=== PATIENT | female | born 1945 | race Caucasian/White ===

== ENCOUNTER 2018-07-05 16:07 | Observation (INO) | payer MEDICARE, BC ==
--- NOTE | 2018-07-05 16:44 | RAD ---
PA AND LATERAL OF THE CHEST: 07/05/18 INDICATION: History of dyspnea and shortness of breath. FINDINGS: There is mild cardiomegaly. There is stable chronic interstitial coarseness which appears similar to the prior exam suspicious for changes of underlying fibrosis. No consolidation, pleural effusion, or pneumothorax is evident. IMPRESSION: No definite acute abnormality. The examination is not appreciably changed from the comparison study. There is diffuse interstitial markings that are slightly prominent and appears similar to the prior e xam suspicious for underlying fibrosis. POS: [facility]
[2018-07-05 16:48] LABS: #Basophils 0.1 thou/uL (0.0-0.2); #Eosinphils 0.3 thou/uL (0.0-0.7); #Lymphocytes 2.8 thou/uL (1.20-3.40); #Monocytes 0.6 thou/uL (0.11-0.59); #Neutrophils 4.1 thou/uL (1.40-6.50); %Basophils 1.8 % (0.0-1.0); %Eosinophils 3.3 % (0.0-10.0); %Lymphocytes 35.7 % (21.0-51.0); %Monocytes 7.4 % (0.0-10.0); %Neutrophils 51.8 % (42.0-75.0); Hemoglobin 13.4 g/dL (12.0-16.0); Mean Corpuscular HGB CONC 35.8 g/dL (32.0-36.0); Mean Corpuscular Hemoglobin 31.2 pg (27.0-31.0); Mean Corpuscular Volume 87.2 fL (78.0-98.0); Mean Platelet Volume 5.7 fL (7.4-10.4); Platelet Count 291 thou/uL (130-400); RBC Distribution Width 11.5 % (11.5-14.5); White Blood Cell (WBC) Count 7.8 thou/uL (4.8-10.8)
[2018-07-05 16:59] LABS: ALT (SGPT) 13 U/L (8-55); AST (SGOT) 19 U/L (5-34); Albumin 3.8 g/dL (3.4-4.8); Alkaline Phosphatase 65 U/L (40-150); Anion Gap 13 mmol/L (10-20); BUN (Urea Nitrogen) 8 mg/dL (9.8-20.1); Bilirubin, Total 0.4 mg/dL (0.2-1.2); CK (CPK) 67 U/L (29-168); Calc. Creatinine Clearance 0 mL/min (70-130); Calcium 9.5 mg/dL (7.8-10.44); Carbon Dioxide 24 mmol/L (23-31); Chloride 102 mmol/L (98-107); Estimated GFR-MDRD 79; Globulin 2.5 g/dL (2.4-3.5); Glucose 90 mg/dL (80-115); Potassium 3.9 mmol/L (3.5-5.1); Protein, Total 6.3 g/dL (6.0-8.3); Sodium 135 mmol/L (136-145)
[2018-07-05 17:01] LABS: CKMB 0.7 ng/mL (0-6.6); Troponin I Less than 0.010 ng/mL (< 0.028)
[2018-07-05 19:52] LABS: Troponin I Less than 0.010 ng/mL (< 0.028)
[2018-07-05 21:13] VITALS: BMI 25.2
[2018-07-05] MEDS ORDERED: Ondansetron ODT 4 MG TAB PO PRN (22:22)
[2018-07-05] MEDS ORDERED: Acetaminophen 325 MG TAB PO PRN (22:22)
[2018-07-05] MEDS ORDERED: Acetaminophen 500 MG TAB PO PRN (22:33)
[2018-07-05] MEDS ORDERED: ESZOPICLONE 3 MG PO SCH (23:00)
[2018-07-05 23:29] LABS: Troponin I Less than 0.010 ng/mL (< 0.028)
[2018-07-06 04:59] LABS: Anion Gap 14 mmol/L (10-20); BUN (Urea Nitrogen) 7 mg/dL (9.8-20.1); Calc. Creatinine Clearance 73 mL/min (70-130); Calcium 8.9 mg/dL (7.8-10.44); Carbon Dioxide 20 mmol/L (23-31); Chloride 105 mmol/L (98-107); Estimated GFR-MDRD 84; Glucose 83 mg/dL (80-115); Potassium 3.7 mmol/L (3.5-5.1); Sodium 135 mmol/L (136-145)
--- NOTE | 2018-07-06 06:16 | HP ---
PRIMARY CARE PHYSICIAN: Emiliano Brady MD CODE STATUS: FULL CODE. TIME OF EVALUATION: 10:20 p.m. CHIEF COMPLAINT: Worsening shortness of breath. HISTORY OF PRESENT ILLNESS: This is a [id number] female patient with past medical history positive for high cholesterol. The patient has no other significant medical problems. She came to the [facility] after having gradually worsening shortness of breath. The symptoms have been present for the pas t few weeks and has been getting worse over the past few days. No clear triggers. No alleviating fa ctors. The patient reported that it gets worse with exertion, improved with resting. She also repor hamilton having some sinus infection, runny nose, and upper respiratory infection. The symptoms were repo rted as [id number]. REVIEW OF SYSTEMS: Constitutional: No fever, chills, or generalized weakness. Respiratory: The pa sridevi has cough. No sputum production. Shortness of breath. Cardiovascular: No chest pain or palp itation. Reported shortness of breath. Gastrointestinal: No nausea, vomiting, diarrhea, abdominal pain. 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 Genitourinary: No burning with urinati on. Extremities: No leg swelling. All other systems were reviewed and negative except for the find ings mentioned above. PAST MEDICAL HISTORY: As mentioned in the HPI. PAST SURGICAL HISTORY: History of heart catheterization. PAST SURGICAL HISTORY: Hysterectomy, sinus surgery. SOCIAL HISTORY: No alcohol, no drugs, no smoking history. FAMILY HISTORY: Mother had history of cancer. Father has a history of acute CT. ALLERGIES: SULFA. REPORTED MEDICATIONS: Aspirin, Lunesta, Lipitor. PHYSICAL EXAMINATION: VITAL SIGNS: Blood pressure 120/71 with heart rate 68, respiratory rate was 24, temperature 97.7, pa in 8/10, oxygen saturation 98 on room air. GENERAL APPEARANCE: The patient is alert, oriented, not in acute distress. HEENT: Eyes, normal conjunctivae. Moist oral mucosa. Anicteric. NECK: No JVD. RESPIRATORY: The patient has bilateral decreased air entry with bilateral rales in lower bases. No wheezing. Symmetric expansion. CARDIOVASCULAR: Normal rate, regular rhythm. No murmurs, no gallop, no edema. ABDOMEN: Soft. Normal bowel sounds. MUSCULOSKELETAL: Baseline range of motion and strength. No tenderness. SKIN: Warm and intact. No pallor, no rash, no redness. Peripheral pulses are present. Capillary r efill seems to be intact. NEUROLOGIC: Baseline sensorium. No evidence of any new focal weakness. Baseline speech. Cranial n erve seems to be intact. PSYCHIATRIC: The patient is in good mood. No anxiety. Oriented. Optimal judgement. EKG was discussed with the performing physician. Normal sinus rhythm at a rate of 64 with no evidenc e of any acute ischemic event. Chest x-ray was reviewed and was reported negative. LABORATORY DATA: The patient has white count 7.8, hemoglobin 13.4, MCV 87.2, platelet count 291. So dium 135, potassium 3.9, chloride 102, carbon dioxide 24, anion gap 13, BUN 8, creatinine 0.73, GFR 7 9, glucose 90, calcium 9.5, total bilirubin 0.4. LFTs were negative. Troponins were negative. ASSESSMENT AND PLAN: The patient will be placed in the hospital with following medical problems: 1. Progressive shortness of breath, unclear etiology. The patient has bilateral lower lobe crackles and possible . The patient also has a history of having some blockage in the past or coronary artery disease. Troponins are negative. BNP is negative. We will rule out congestive heart failure with echo in the morning. If there is no congestive heart failure, the next possibility for diagnos is could be pulmonary fibrosis. In this case, I could do high-resolution CT of the chest and we will consult Pulmonary for further management. The patient is with normal vital signs at this point. We will put some nebulizers. She does not seem to have any need for any further medication at this poi nt. The patient has been started empirically in the morning if echo is negative for congestive heart failure. 2. Hyperlipidemia. Continue atorvastatin. Low-cholesterol diet is advised. 3. Deep venous thrombosis prophylaxis.
[2018-07-06 07:31] LABS: #Basophils 0.1 thou/uL (0.0-0.2); #Eosinphils 0.3 thou/uL (0.0-0.7); #Lymphocytes 2.5 thou/uL (1.20-3.40); #Monocytes 0.5 thou/uL (0.11-0.59); #Neutrophils 3.9 thou/uL (1.40-6.50); %Basophils 0.7 % (0.0-1.0); %Eosinophils 4.4 % (0.0-10.0); %Lymphocytes 34.1 % (21.0-51.0); %Monocytes 7.4 % (0.0-10.0); %Neutrophils 53.3 % (42.0-75.0); Hemoglobin 13.1 g/dL (12.0-16.0); Mean Platelet Volume 6.4 fL (7.4-10.4); Platelet Count 265 thou/uL (130-400); RBC Distribution Width 12.6 % (11.5-14.5); Red Blood Cell (RBC) Count 3.98 mill/uL (4.20-5.40); White Blood Cell (WBC) Count 7.3 thou/uL (4.8-10.8)
[2018-07-06] MEDS ORDERED: Furosemide 40 MG/4 ML VIAL SLOW IVP SCH (09:00)
[2018-07-06] MEDS ORDERED: Aspirin 325 mg Enteric Coated Tablet PO SCH (09:00)
[2018-07-06] MEDS ORDERED: Enoxaparin Sodium 40 MG/0.4 ML SYRINGE SC SCH (09:00)
[2018-07-06] MEDS ORDERED: Aspirin 81 mg Enteric Coated Tablet PO SCH (09:00)
[2018-07-06] MEDS ORDERED: Atorvastatin Calcium 20 MG TAB PO SCH ×2 (09:00→21:00)
--- NOTE | 2018-07-06 12:01 | PDOC.PN ---
- Subjective Encounter Start Date: 07/06/18 (f/u Shortness of breath) Encounter Start Time: 12:00 Subjective: Pt reports waking up feeling better today. Denies any new sx. -: Voided x 3 after lasix this morning. - Objective Resuscitation Status: Resuscitation Status FULL:Full Resuscitation Vital Signs & Weight: Vital Signs (12 hours) Temp Pulse Resp BP BP Pulse Ox 07/06/18 08:05 98.3 F 69 16 116/57 L 92 L 07/06/18 03:48 98.4 F 71 24 H 125/63 93 L 07/06/18 00:14 98.1 F 68 25 H 120/56 L 93 L Weight Weight 133 lb 11.2 oz I&O: 07/05/18 07/06/18 07/07/18 06:59 06:59 06:59 Intake Total 240 4 Balance 240 4 Result Diagrams: 07/06/18 04:02 07/06/18 04:02 EKG Reviewed by me: Yes (tele - sinus 50-60's) Phys Exam - Physical Examination Constitutional: NAD Respiratory: no wheezing, no rhonchi fine rales right base > left base. Cardiovascular: RRR, no significant murmur Gastrointestinal: soft, non-tender, no distention, positive bowel sounds Musculoskeletal: no edema, pulses present Neurological: non-focal, moves all 4 limbs Psychiatric: normal affect Dx/Plan (1) Dyspnea Code(s): R06.00 - DYSPNEA, UNSPECIFIED Status: Acute (2) Dyslipidemia Code(s): E78.5 - HYPERLIPIDEMIA, UNSPECIFIED Status: Chronic - Plan * suspect interstitial lung disease - will order high resolution CT scan of chest. Based on this result, may need inpatient or outpatient consult to Pulm. * Obtain pulse ox with ambulation * Negative cardiac eval thus far - normal BNP, neg trops, normal telemetry. Echo result pending, will d/c lasix * continue home meds * Recent sinus infection post-abx with peristent PND and some sx - otc meds. * * dvt prophy - ambulatory * gi prophy - not indicated * code status full * * Reviewed plan of care with patient, no questions or further needs at end of eval.
[2018-07-06 16:07] VITALS: BP 158/66; TEMP 98
--- NOTE | 2018-07-06 16:53 | CT ---
NONCONTRAST HIGH RESOLUTION CT IMAGES OF THE THORAX 07/06/18 COMPARISON: CT pulmonary lung scan dated 09/08/16. FINDINGS: There is moderate to severe central lobular and paraseptal emphysema. There is some subsegmental volu me loss within both lower lobes that improves with supine positioning. No keren pulmonary effusion is evident. There is scattered coronary artery and thoracic aortic calcifications. IMPRESSION: 1. Moderate to severe central lobular and paraseptal emphysema appears similar to the prior exam . 2. Transient subsegmental volume loss within both lower lobes. POS: [facility]
[2018-07-06] MEDS ORDERED: ESZOPICLONE 3 MG PO SCH (21:00)
--- NOTE | 2018-07-06 23:09 | DIS ---
DATE OF ADMISSION: 07/05/2018 DATE OF DISCHARGE: 07/06/2018 DISCHARGE DIAGNOSES: 1. Jsefygax-ha-uvcdry emphysema, new diagnosis. SECONDARY DIAGNOSES: 1. Dyslipidemia. 2. Insomnia. 3. Tobacco abuse. MEDICATIONS: Reconciled at discharge. NEW MEDICATIONS: 1. Spiriva Respimat 2 inhalations once daily, dispense 1, refill 1. 2. Albuterol or Ventolin HFA 1 puff every 4 hours as needed for wheezing or shortness of breath. CONTINUED MEDICATIONS: 1. Tylenol 500 mg every 4 hours as needed. 2. Aspirin 81 mg daily. 3. Atorvastatin 20 mg daily. 4. Lunesta 3 mg at bedtime. STUDIES PENDING: Echocardiogram result - to be obtained either from Dr. Brady or Dr. Oneill. HISTORY OF PRESENT ILLNESS: Ms. Marie is a 72-year-old female who presented to the emergency room with gradually worsening shortness of breath ongoing for the past few weeks. Symptoms were worse with exertion and improved with resting , and she has recently been treated for a sinus infection with antibiotics. Patient was admitted for further evaluation. HOSPITAL COURSE: Patient was evaluated, given a dose of Lasix for concern of a cardiac etiology, and echocardiogram was obtained but not yet read at time of discharge. She had an abnormal chest x-ray concerning for areas suspicious for fibrosis and underwent a high-resolution CT today, which showed moderate-to- severe emphysematous changes. In conjunction with her symptoms, history of tobacco abuse, this is all consistent with a new diagnosis of emphysema. Patient has seen Dr. Oneill in the remote past and will follow up with him in the outpatient setting. In the meantime, we will start her on Spiriva daily, as well as needed albuterol. She has maintained a normal oxygen saturation level at rest and with ambulation. Patient is overall feeling better today, there are no acute needs, and she meets criteria for discharge to home. PHYSICAL EXAMINATION: On day of discharge, please see note on chart. STILES FINDINGS AND TEST RESULTS: 1. CBC: 7.3, 13.1, 38.6, 265. 2. D-dimer 0.34/negative. 3. Renal panel: 135, 3.7, 105, 20, 7, 0.69, 83. 4. Troponins x3 negative, BNP 11. LFTs were normal. High-resolution CT performed today, [id number] central lobular and paraseptal emphysema appears similar to the prior exam, transient subsegmental volume loss within both lower lobes. Chest x-ray performed yesterday, no definite acute abnormality, not appreciably changed from comparison study, diffuse interstitial markings are slightly prominent appears similar to prior exam suspicious for underlying fibrosis. DIET: Heart healthy. ACTIVITY: As tolerated. FOLLOWUP: 1. Follow up with Dr. Oneill in the next available appointment for further evaluation, and management of new diagnosis of emphysema. 2. Follow up with Dr. Brady within a week or two to obtain the echocardiogram report, and address any other health needs. DISCHARGE DISPOSITION: Home. CODE STATUS: FULL. I reviewed with patient and her family this hospitalization, the findings of the CT result, encouragement for tobacco cessation, and return for care precautions. They demonstrate understanding. Total time coordinating discharge is 30 minutes. HARDEEP
== END 2018-07-06 18:32 | disposition home or self-care (01) ==
LOC: SCSER 16:07 → 2SW 17:52
PROVIDERS: ADMIT Internal Medicine; ATTEND Internal Medicine
DX: J43.9 Emphysema, unspecified (principal); E78.5 Hyperlipidemia, unspecified; G47.00 Insomnia, unspecified; Z88.2 Allergy status to sulfonamides; Z79.82 Long term (current) use of aspirin; Z79.899 Other long term (current) drug therapy
CPT/HCPCS: 71046; 71250; 80048; 80053; 82550; 82553; 83880; 84484 ×2; 85025 ×2; 85379; 93005; 93306; 96372; 96374; 99285; G0378 ×2; 36415; J1650; J1940; J7620; Q0162

== ENCOUNTER 2018-12-09 08:42 | Outpatient (CLI) | payer MEDICARE, BC ==
--- NOTE | 2018-12-09 11:23 | MRI ---
LUMBAR SPINE MRI WITHOUT CONTRAST: DATE: 12/09/2018. COMPARISON: 08/05/2017. HISTORY: Lumbar radiculopathy, bilateral hip pain with bilateral lower extremity radiculopathy, right worse th an left. TECHNIQUE: Multiplanar, multisequence MR imaging of the lumbar spine provided without contrast. FINDINGS: The sagittal STIR imaging demonstrates no discrete focal area of osseous marrow edema. There is moderate levoscoliosis within the mid lumbar spine. On the basis of 5 lumbar-type vertebral bodies, conus medullaris terminates at the L1 level. T12-L1: There is disk desiccation. There is no significant central canal or neural foraminal stenos is. L1-2: There is disk space narrowing and disk desiccation. There is bilateral facet hypertrophy. Th ere is disk bulge. These findings are, for the most part, new when compared to the prior exam. Ther e is mild central canal stenosis and mild bilateral neural foraminal stenosis. L2-3: There is disk space narrowing and disk desiccation with a disk-osteophyte complex and anterior osteophyte formation. There is mild central canal stenosis. These findings are new when compared t o the prior imaging. There is mild bilateral facet hypertrophy with mild bilateral neural foraminal stenosis. L3-4: Disk space narrowing, disk desiccation, and disk bulge present with moderate central canal maria luisa nosis, worsened when compared to prior imaging. There is facet hypertrophy bilaterally with mild/mod erate bilateral neural foraminal stenosis, left greater than right. L4-5: Disk space narrowing, disk desiccation, and disk-osteophyte complex present. Mild central can al stenosis, stable. There is mild bilateral neural foraminal stenosis, left greater than right. L5-S1: There is disk space narrowing, disk desiccation, and mild disk bulge. No significant central canal stenosis. Bilateral facet hypertrophy present. Moderate left-sided neural foraminal stenosis , slightly worsened. Review of the retroperitoneal structures demonstrates no acute findings. IMPRESSION: Multilevel degenerative change within the lumbar spine, worsened since the 2006 exam. POS: [facility]
--- NOTE | 2018-12-09 11:30 | RAD ---
LUMBAR SPINE 4 VIEWS: DATE: 12/09/2018. COMPARISON: None. HISTORY: Lumbar radiculopathy. FINDINGS: Frontal imaging demonstrates significant levoscoliosis of the lumbar spine centered at the L2 level. There is atherosclerotic calcification of the abdominal aorta. There is multilevel disk space narrowing within the lumbar spine, most prominent at L1-2, L2-3, and L 3-4. The lateral imaging demonstrates multilevel disk space narrowing with multilevel degenerative e nd plate change as well as multilevel anterior osteophyte formation at all levels. There is no anter olisthesis or retrolisthesis seen on the neutral lateral, flexion lateral, or extension lateral views . Posterior osteophyte formation noted at T12-L1, L1-2, and L3-4. IMPRESSION: Multilevel degenerative change within the lumbar spine as detailed above. POS: [facility]
== END 2018-12-09 08:43 | disposition home or self-care (01) ==
LOC: BICMRI 08:42
PROVIDERS: ATTEND Anesthesiology Pain Medicine
DX: M47.26 Other spondylosis with radiculopathy, lumbar region (principal)
CPT/HCPCS: 72110; 72148

== ENCOUNTER 2019-11-19 09:33 | Outpatient (CLI) | payer MEDICARE, BC ==
--- NOTE | 2019-11-19 10:33 | CT ---
EXAM: CT chest without contrast per low-dose cancer screening protocol HISTORY: History of smoking and nicotine dependence COMPARISON: 09/08/2016 TECHNIQUE: Multiple contiguous axial images were obtained in a CT of the chest without contrast per l ow-dose cancer screening protocol. Sagittal and coronal reformats were performed. FINDINGS: Pulmonary nodules: A stable 5 mm triangle shaped nodule is seen in the superior aspect of the left lo wer lobe on image 135 of 250. No new pulmonary nodules are seen. No focal infiltrates are seen. Atelectasis is seen in both lung bases. Pleural space: No pneumothorax or pleural effusion are seen. Heart: The heart is normal in size. Mediastinum: No hilar or mediastinal lymphadenopathy appreciated on this limited noncontrast examinat ion. Bones: Unremarkable. Visualized subdiaphragmatic structures: Unremarkable. IMPRESSION: Lung RADS category 2-benign findings.
== END 2019-11-19 09:34 | disposition home or self-care (01) ==
LOC: CT 09:33
PROVIDERS: ATTEND Family Medicine
DX: Z12.2 Encounter for screening for malignant neoplasm of respiratory organs (principal); F17.210 Nicotine dependence, cigarettes, uncomplicated
CPT/HCPCS: G0297

== ENCOUNTER 2019-11-24 09:08 | Outpatient (CLI) | payer MEDICARE, BC ==
--- NOTE | 2019-11-24 10:04 | MMO ---
Bilateral MAMMO Bilat Screen [facility]. CLINICAL HISTORY: Patient is 74 years old and is seen for screening. The patient has no family history of breast cancer. The patient has no personal history of cancer. VIEWS: The views performed were: bilateral craniocaudal with tomosynthesis and bilateral mediolateral oblique with tomosynthesis. FILMS COMPARED: The present examination has been compared to prior imaging studies performed at [facility] on 06/12/2014, 10/06/2015 and 10/09/2016, and at [facility] on 11/28/2007. This study has been interpreted with the assistance of computer-aided detection. MAMMOGRAM FINDINGS: There are scattered fibroglandular densities. There is an asymmetry seen in the CC view only seen in the sub-areolar region of the left breast. In the right breast, there are no suspicious masses, calcifications or areas of architectural distortion. IMPRESSION: ASYMMETRY IN THE LEFT BREAST REQUIRES ADDITIONAL EVALUATION. RECOMMEND DIAGNOSTIC MAMMOGRAM. ULTRASOUND MAY ALSO PROVE USEFUL AT RECALL. THE RESULTS OF THIS EXAM WERE SENT TO THE PATIENT. ACR BI-RADS Category 0 - Incomplete: Need additional imaging evaluation. [facility] will notify the patient of the need for additional imaging services. MAMMOGRAPHY NOTE: 1. A negative mammogram report should not delay a biopsy if a dominant of clinically suspicious mass is present. 2. Approximately 10% to 15% of breast cancers are not detected by mammography. 3. Adenosis and dense breasts may obscure an underlying neoplasm. Reported by: KIM PRIEST MD Electonically Signed: [id number]
== END 2019-11-24 09:09 | disposition home or self-care (01) ==
LOC: BICMAMMO 09:08
PROVIDERS: ATTEND Family Medicine
DX: Z12.31 Encounter for screening mammogram for malignant neoplasm of breast (principal); N64.89 Other specified disorders of breast
CPT/HCPCS: 77063; 77067

== ENCOUNTER 2019-11-28 08:37 | Outpatient (CLI) | payer MEDICARE, BC ==
--- NOTE | 2019-11-28 09:12 | MMO ---
Left Breast MAMMO Unilat Diag [facility] LT+[facility]ARI. CLINICAL HISTORY: Patient is 74 years old and is seen for additional evaluation requested from prior study. The patient has no family history of breast cancer. The patient has no personal history of cancer. VIEWS: The views performed were: left craniocaudal spot compression with tomosynthesis and left mediolateral with tomosynthesis. FILMS COMPARED: The present examination has been compared to prior imaging studies performed at [facility] on 06/12/2014, 10/06/2015, 10/09/2016 and 11/24/2019. This study has been interpreted with the assistance of computer-aided detection. MAMMOGRAM FINDINGS: There are scattered fibroglandular densities. Additional evaluation was performed for the asymmetry in the left breast, sub-areolar seen on 11/24/2019. On the present examination, asymmetry in the left breast, sub-areolar does not persist. There are no suspicious masses, suspicious calcifications, or new areas of architectural distortion. IMPRESSION: THERE IS NO MAMMOGRAPHIC EVIDENCE OF MALIGNANCY. THE FINDINGS AND RECOMMENDATIONS WERE DISCUSSED WITH THE PATIENT PRIOR TO HER LEAVING THE CENTER. A ROUTINE FOLLOW-UP MAMMOGRAM IN 1 YEAR IS RECOMMENDED. THE RESULTS OF THIS EXAM WERE SENT TO THE PATIENT. ACR BI-RADS Category 2 - Benign finding MAMMOGRAPHY NOTE: 1. A negative mammogram report should not delay a biopsy if a dominant of clinically suspicious mass is present. 2. Approximately 10% to 15% of breast cancers are not detected by mammography. 3. Adenosis and dense breasts may obscure an underlying neoplasm. Reported by: LEROY HYDE MD Electonically Signed: [id number]
== END 2019-11-28 08:38 | disposition home or self-care (01) ==
LOC: BICMAMMO 08:37
PROVIDERS: ATTEND Family Medicine
DX: R92.2 Inconclusive mammogram (principal)
CPT/HCPCS: 77065; G0279

== ENCOUNTER 2022-03-03 10:44 | Outpatient (CLI) | payer MEDICARE, BC | END 2022-03-03 10:45 | disposition home or self-care (01) | LOC: BICMAMMO 10:44 | PROVIDERS: ATTEND Family Medicine | DX: Z12.31 Encounter for screening mammogram for malignant neoplasm of breast (principal); Z12.2 Encounter for screening for malignant neoplasm of respiratory organs; F17.210 Nicotine dependence, cigarettes, uncomplicated; R91.8 Other nonspecific abnormal finding of lung field | CPT/HCPCS: 71271; 77063; 77067 ==

== ENCOUNTER 2022-03-21 08:45 | Outpatient (CLI) | payer MEDICARE, BC | END 2022-03-21 08:46 | disposition home or self-care (01) | LOC: PET 08:45 | PROVIDERS: ATTEND Family Medicine | DX: R91.1 Solitary pulmonary nodule (principal) | CPT/HCPCS: 78815; A9552 ==

== ENCOUNTER 2022-08-09 10:18 | Outpatient (CLI) | payer MEDICARE, BC | END 2022-08-09 10:19 | disposition home or self-care (01) | LOC: RAD 10:18 | PROVIDERS: ATTEND Internal Medicine Critical Care Medicine | DX: R06.09 Other forms of dyspnea (principal) | CPT/HCPCS: 71046 ==

== ENCOUNTER 2023-08-20 07:44 | Outpatient (CLI) | payer MEDICARE, BC ==
[2023-08-20] MEDS ORDERED: Iopamidol 370 76% 100 ML VIAL ONE (09:48)
== END 2023-08-20 07:45 | disposition home or self-care (01) ==
LOC: BICCT 07:44
PROVIDERS: ATTEND Family Medicine
DX: R10.84 Generalized abdominal pain (principal)
CPT/HCPCS: 74177; Q9967

== ENCOUNTER 2024-05-28 10:15 | Outpatient (CLI) | payer MEDICARE | END 2024-05-28 10:16 | disposition home or self-care (01) | LOC: BICCT 10:15 | PROVIDERS: ATTEND Family Medicine | DX: Z12.2 Encounter for screening for malignant neoplasm of respiratory organs (principal); E04.1 Nontoxic single thyroid nodule; Z87.891 Personal history of nicotine dependence | CPT/HCPCS: 71271 ==

== ENCOUNTER 2024-09-16 09:32 | Outpatient (CLI) | payer MEDICARE | END 2024-09-16 09:33 | disposition home or self-care (01) | LOC: BICULT 09:32 | PROVIDERS: ATTEND Family Medicine | DX: E04.2 Nontoxic multinodular goiter (principal) | CPT/HCPCS: 76536 ==

== ENCOUNTER 2025-07-07 14:12 | Outpatient (CLI) | payer MEDICARE | END 2025-07-07 14:13 | disposition home or self-care (01) | LOC: SCSRAD 14:12 | PROVIDERS: ATTEND Family Medicine | DX: J44.1 Chronic obstructive pulmonary disease with (acute) exacerbation (principal); I51.7 Cardiomegaly | CPT/HCPCS: 71046 ==